=== PATIENT | female | born 1960 | race Hispanic/Latino ===

== ENCOUNTER 2017-04-28 06:22 | Day surgery (SDC) | payer OTHER ==
[2017-04-21 08:37] VITALS: BMI 32.9
[2017-04-28] MEDS ORDERED: ceFAZolin IV 1 gm in Dextrose 1 GM/50 ML BAG IVPB ONE (07:34)
[2017-04-28] MEDS ORDERED: Bacitracin Ointment 30 GM TUBE ONE (07:34)
[2017-04-28] MEDS ORDERED: Propofol 10 mg/ml Inj (20 ML) ONE (07:47)
[2017-04-28] MEDS ORDERED: Midazolam 2 MG/2 ML VIAL ONE (07:47)
[2017-04-28] MEDS ORDERED: Lactated Ringer's 1,000 ML IV ONE (07:54)
[2017-04-28] MEDS ORDERED: Bupivacaine HCl 0.5% PF (10 ml) Inj ONE (08:12)
[2017-04-28] MEDS ORDERED: HYDROmorphone 0.5 mg/0.5 ml ISec IVP PRN (08:32)
[2017-04-28] MEDS ORDERED: Oxycodone/Acetaminophen 5/325 mg Tab PO PRN (09:07)
--- NOTE | 2017-04-28 09:07 | PCM.SURG1 ---
Surgeon's Initial Post Op Note - Surgeon's Notes Surgeon: Dr. Josie Philippe Religious Ritual Slaughterer: Hannah Powers, PGY2; Erik Briceño Pre-Operative Diagnosis: right Carpal tunnel syndrome, right Cubital tunnel sydrome Operative Findings: see full operative report Post-Operative Diagnosis: same Operation Performed: right Endoscopic carpal tunnel release, right open cubital tunnel release Specimen/Specimens Removed: none Estimated Blood Loss: EBL {In ML}: 3 Date of Surgery/Procedure: 04/28/17 Time of Surgery/Procedure: 08:00
[2017-04-28] MEDS ORDERED: Lactated Ringer's 500 ML IV ONE (10:20)
[2017-04-28 11:10] VITALS: O2SAT 98
[2017-04-28 11:31] VITALS: BP 144/68; PULSE 75; RESP 18; TEMP 97.5
--- NOTE | 2017-05-05 04:17 | OP ---
PROCEDURE DATE: 04/28/2017 PREOPERATIVE DIAGNOSIS: Left carpal and cubital tunnel syndrome. POSTOPERATIVE DIAGNOSIS: Left carpal and cubital tunnel syndrome. PROCEDURE: Endoscopic carpal tunnel release of the right wrist and cubital tunnel release at the right elbow. SURGEON: Josie Philippe MD ASSISTANTS: Dr. Hannah Powers, PGY2 and Erik Briceño MS III. TYPE OF ANESTHESIA: General endotracheal anesthesia. ESTIMATED BLOOD LOSS: 10 mL. COUNTS: Laps, sponge, and needle counts were correct at the end of the case. TOURNIQUET TIME: 45 minutes. CONDITION: The patient was stable upon discharge to recovery. HISTORY OF PRESENT ILLNESS: The patient is a 65-year-old female with severe carpal tunnel and cubital tunnel, more worse on the left, however, recently has been having worsening pain to the right cubital tunnel. Decision was made to proceed with both carpal and cubital tunnel releases today. DESCRIPTION OF PROCEDURE: Surgery is as follows. The patient was identified in the holding area. The right arm was marked. She was then brought into the operating room, laid supine on the operating room table. Once general anesthesia was induced, the right arm was placed in the tourniquet and then prepped and draped in the usual sterile fashion. The arm was exsanguinated and tourniquet inflated to 250 mm of pressure for 45 minutes. Beginning with the wrist, a 1 cm incision approximately 1 cm from the wrist crease was made on the ulnar half of the volar forearm inline with the fourth metacarpal ray. The incision was taken down through skin and dermis. Proximally the antebrachial cutaneous fascia was identified and divided into the mid forearm distally. The leading edge of the antebrachial cutaneous fascia continue with the carpal tunnel. A Rasper was used to separate any connective tissue on the under surface of the carpal ligament. Using an endoscopic carpal tunnel system, the endoscopic bladder was then placed into the carpal ligament and using a retrograde manner the bladder was engaged and the carpal ligament was divided from distal towards proximal. Any fibrous connections in the fascia was also divided in order to open the carpal tunnel space. Once the carpal ligament was divided, the endoscopic equipment was passed through the carpal canal easily. The elbow was addressed next. Using a 2.5 cm incision on the medial aspect of the elbow residential between the olecranon and medial epicondyle, the incision was taken down through skin and fascia until the medial retinaculum of the medial epicondyle was identified. The ligament itself was divided and ulnar nerve was identified. Distally the ligament was divided into the forearm between the 2 branches of the FCU tendon. Proximally the tunnel was divided to the level of the intramuscular septum using freer elevator. The cubital tunnel was explored and there was no further entrapment or pressure noted. The ulnar itself was fairly well adherent to the cubital tunnel fossa and was mobilized from its bony canal with tenotomy scissors in order to allow gliding. The elbow was then flexed and extended and no additional tethering was noted. The tourniquet was deflated at this point and pressure held for 5 minutes. Any bleeding was controlled with electrocautery. The two wounds were then closed with 3-0 Monocryl to the deep dermis followed by 4-0 Monocryl running subcuticular. The incisions were covered with Adaptic, bacitracin, 4 x 4 gauze, Webril and secured in place with an Tray wrap. The patient tolerated the procedure well. Marcaine was infiltrated both sites for postoperative pain relief. She was extubated, transferred to a stretcher, and brought to recovery in stable condition. Josie Philippe MD [facility]
== END 2017-04-28 11:00 | disposition home or self-care (01) ==
LOC: C.SDS 06:22
PROVIDERS: ATTEND Plastic Surgery Surgery of the Hand
DX: G56.01 Carpal tunnel syndrome, right upper limb (principal); G56.21 Lesion of ulnar nerve, right upper limb
CPT/HCPCS: 29848; 64718; J0690; J2250; J2704; J3010; J7120